=== PATIENT | male | born 1950 | race Caucasian/White ===

== ENCOUNTER 2020-12-25 06:13 | Emergency (ER) | payer OTHER ==
[~2020-12-25] VITALS: Ht 182.9 cm; Wt 70.5 kg
[2020-12-25 06:19] VITALS: BP 123/63
[2020-12-25] MEDS ORDERED: TETanus/Pertussis (Acell)/Diphther VAC/PF (Tdap-Adult) 0.5ml syringe IMVAC ONE (06:30)
--- NOTE | 2020-12-25 07:23 | NUR ---
PT DENIES THAT THERE IS ANY NEED FOR WOUND CARE. NONE GIVEN. PT GIVEN TETANUS VACCINATION ORDERED.
== END 2020-12-25 07:33 | disposition home or self-care (01) ==
LOC: ER 06:14
DX: S41.112A Laceration without foreign body of left upper arm, initial encounter (principal); F17.200 Nicotine dependence, unspecified, uncomplicated; W26.0XXA Contact with knife, initial encounter; Y93.89 Activity, other specified; Y92.89 Other specified places as the place of occurrence of the external cause; Y99.8 Other external cause status
CPT/HCPCS: 90471; 90715; 99283